=== PATIENT | female | born 1995 | race Caucasian/White ===

== ENCOUNTER → 2018-07-06 21:06 | Observation (INO) ==
[2018-07-06 17:40] LABS: Amphetamine Screen,Urine Negative ng/mL (Cutoff=1000); Barbiturate Screen,Urine Negative ng/mL (Cutoff=200); Benzodiazepines Screen,Urine Negative ng/mL (Cutoff=200); Cannabinoid Screen,Urine Negative ng/mL (Cutoff = 50); Cocaine Screen,Urine Negative ng/mL (Cutoff= 300); Opiate Screen,Urine Negative ng/mL (Cutoff=300); Phencyclidine Screen,Urine Negative ng/mL (Cutoff=25)
[2018-07-06 17:55] LABS: Bilirubin,Urine Negative (Negative); Blood,Urine Negative (Negative); Clarity,Urine Clear (Clear); Color,Urine Yellow (Yellow); Glucose,Urine (UA) Normal (Normal); Ketones,Urine Negative (Negative); Leukocyte Esterase,Urine Moderate (Negative); Nitrite,Urine Negative (Negative); Protein,Urine Negative (Neg-Trace); Specific Gravity,Urine < 1.005 (1.010-1.025); Urobilinogen,Urine Normal (Normal)
[2018-07-06 17:57] LABS: Bacteria,Urine Moderate per hpf (None-Few); Hyaline Casts,Urine None Seen per lpf (None-Few); RBC,Urine 0-3 per hpf (0-3); Squamous Epithelial Cell,Urine Many per lpf (None-Few)
[2018-07-06 19:47] LABS: Candida DNA Not Detected (Not Detect); Gardnerella DNA Not Detected (Not Detect); Trichomonas DNA Not Detected (Not Detect)
--- NOTE | 2018-07-06 20:01 | Discharge Summary ---
Date of Encounter: 07/06/18 Time of Encounter: 20:03 - Discharge Diagnosis (1) 35 weeks gestation of Priority: Primary Status: Acute Comments: Admitted to observation for labor evaluation Urinalysis contaminated, but otherwise unremarkable. No cervical change while in observation. (2) Uterine contractions during Priority: Secondary Status: Acute Comments: Admitted to observation for labor evaluation. Irregular contractions noted on monitor Tylenol given for discomfort No cervical change despite irregular uterine contractions. (3) NST (non-stress test) reactive Priority: Secondary Status: Acute Comments: FHR 125 bpm, moderate variability, +15x15 accels, no decels - Discharge Medications Allergies/Adverse Reactions: Allergy/AdvReac Type Severity Reaction Status Date / Time Amoxicillin Allergy Hives Verified 07/06/18 19:11 Data Procedures and tests throughout hospitalization: Laboratory Tests 07/06/18 07/06/18 07/06/18 17:18 17:18 18:30 Urine Color Yellow Urine Clarity Clear Urine pH 7.0 Ur Specific [place] < 1.005 L Urine Protein Negative Urine Glucose (UA) Normal Urine Ketones Negative Urine Blood Negative Urine Nitrite Negative Urine Bilirubin Negative Urine Urobilinogen Normal Ur Leukocyte Esterase Moderate H Urine Microscopic RBC 0-3 Urine Microscopic WBC 5-15 H Ur Squamous Epith Cells Many H Urine Bacteria Moderate H Hyaline Casts None Seen Ur Culture Indicated? NO. A Urine Opiates Screen Negative Ur Barbiturates Screen Negative Ur Phencyclidine Scrn Negative Ur Amphetamines Screen Negative U Benzodiazepines Scrn Negative Urine Cocaine Screen Negative U Marijuana (THC) Screen Negative Ur Drug Screen Interp See Below Serenity species DNA Not Detected Gardnerella DNA Probe Not Detected Trichomonas DNA Probe Not Detected Labs on day of discharge: Labs from last 24 hours 07/06/18 07/06/18 07/06/18 18:30 17:18 17:18 Urine Color Yellow Urine Clarity Clear Urine pH 7.0 Ur Specific [place] < 1.005 L Urine Protein Negative Urine Glucose (UA) Normal Urine Ketones Negative Urine Blood Negative Urine Nitrite Negative Urine Bilirubin Negative Urine Urobilinogen Normal Ur Leukocyte Esterase Moderate H Urine Microscopic RBC 0-3 Urine Microscopic WBC 5-15 H Ur Squamous Epith Cells Many H Urine Bacteria Moderate H Hyaline Casts None Seen Ur Culture Indicated? NO. A Urine Opiates Screen Negative Ur Barbiturates Screen Negative Ur Phencyclidine Scrn Negative Ur Amphetamines Screen Negative U Benzodiazepines Scrn Negative Urine Cocaine Screen Negative U Marijuana (THC) Screen Negative Ur Drug Screen Interp See Below Serenity species DNA Not Detected Gardnerella DNA Probe Not Detected Trichomonas DNA Probe Not Detected Date of admission: 07/06/18 16:08 Primary care physician: Nel Osorio MD Discharging clinician: Anai Nolan Anticipated date of discharge: 07/06/18 - Patient Status Disposition: Home, Self-Care Condition: Good Functional capacity at discharge: independent ambulation Overall status at discharge: patient is progressing back to baseline - Discharge Instructions Follow Up With: Nel Osorio MD [Primary Care Provider] - - Diet and Activity Activity: resume usual activities as tolerated Diet: regular diet Hospital Course 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 States she has had intercourse in the last 24 hours. She reports positive movement, denies vaginal bleeding, abnormal discharge, and fluid leakage. Vaginal exam on admission 1cm/80%/-3 station with fetus noted to be in breech presentation, verified with bedside ultrasound. Cervix without slip box changer the course of >2 hours. Small amount of white chunky discharge noted on glove with SVE so Vaginosis panel sample collected and returned with negative results. labor precautions given. Patient is to follow up on 07/14 for routine care with Dr. Velez as scheduled. Time Attestation: Total time spent providing and/or coordinating discharge services: Time Spent: Less than 30 minutes Exam - Constitutional General appearance IM: A&O X 3, pleasant, no acute distress - Respiratory Respiratory exam: Present: CTAB - Cardiovascular Cardiovascular exam IM: Present: RRR, +S1, +S2 - GI/Abdominal GI/Abdominal exam IM: normal bowel sounds, soft - Rectal Rectal exam: deferred - Extremities Exam Extremities exam IM: Present: full ROM, normal inspection, pedal edema - Neurological Exam Neurological exam: alert, normal gait, oriented X3 - VTE Reasons for not Prescribing Prophylaxis: Treatment not Indicated - Low risk for VTE
[~2018-07-06 21:06] MED LIST: Acetaminophen 325 MG TABLET PO ONE
== END | disposition home or self-care (01) ==
LOC: 1NENULAB
PROVIDERS: ADMIT Registered Nurse; ATTEND Registered Nurse

== ENCOUNTER 2018-07-10 17:28 | Inpatient (IN) ==
--- NOTE | 2018-07-10 13:24 | OB Labor Progress Note ---
Date of Encounter: 07/10/18 Time of Encounter: 13:22 Labor Progress Note - Subjective Subjective: Patient reports feeling contractions for several days now. - Cervix Cervix: 4-5/908/-1 - Heart Tones Heart Tones: FHR 125 bpm, moderate variability, +15x15 accels, no decels. - [place]: High frequency, low amplitude uterine actiivty noted. - Interventions Interventions: Bedside ultrasound reveals persistent breech presentation. Consult with Dr. Gloria regarding possible . - Plan Physician notified: Yes Physician notified details: Dr. Gloria notified of at 35w6d who presents with back and pelvic pain for multiple days. She had previously been 1 cm on 07/06/18 and presents today at 4- 5 cm, still in breech presentation. Plan: Give dose of steroids now. Have patient take a Hibiclens shower in preparation for possible . Recheck cervix in 1- 1 1/2 hours.
[2018-07-10 14:19] LABS: Bilirubin,Urine Negative (Negative); Blood,Urine Negative (Negative); Clarity,Urine Cloudy (Clear); Color,Urine Yellow (Yellow); Glucose,Urine (UA) Normal (Normal); Ketones,Urine Negative (Negative); Leukocyte Esterase,Urine Large (Negative); Nitrite,Urine Negative (Negative); PH,Urine 6.5 pH Units (5.0-8.0); Protein,Urine Negative (Neg-Trace); Urobilinogen,Urine Normal (Normal)
[2018-07-10 14:22] LABS: Bacteria,Urine Many per hpf (None-Few); Hyaline Casts,Urine None Seen per lpf (None-Few); RBC,Urine 0-3 per hpf (0-3); Squamous Epithelial Cell,Urine Many per lpf (None-Few); WBC,Urine 50-100 per hpf (0-3)
[2018-07-10 14:35] LABS: Amphetamine Screen,Urine Negative ng/mL (Cutoff=1000); Barbiturate Screen,Urine Negative ng/mL (Cutoff=200); Benzodiazepines Screen,Urine Negative ng/mL (Cutoff=200); Cannabinoid Screen,Urine Negative ng/mL (Cutoff = 50); Cocaine Screen,Urine Negative ng/mL (Cutoff= 300); Opiate Screen,Urine Negative ng/mL (Cutoff=300); Phencyclidine Screen,Urine Negative ng/mL (Cutoff=25)
--- NOTE | 2018-07-10 15:00 | OB/GYN History & Physical ---
Date of Encounter: 07/10/18 Time of Encounter: 14:58 Assessment and Plan (1) 35 weeks gestation of Current visit: Yes Status: Acute 23 y/o female at 35 weeks and 6 days gestation Complaint of intermittent contractions and pelvic pain for several days Has made cervical change consultant past several days, dilation of 1 cm on 07/06/18, 3 cm 07/09/18 and now today at 5 cm, 100% effacement and BBOW Bedside U/S shows breech position GBS + Given 1 of 2 doses of betametasone at 13:45 today due to breech position, cervical dilation and contractions Dr. Gloria regional education manager (2) NST (non-stress test) reactive Current visit: Yes Status: Acute FHR 135 Moderate variability +15 x 15, no decels (3) labor in third trimester Current visit: Yes Status: Acute Patient has made cervical change and is flora q 1 minute with a bulging bag and breech presentation. Risks, benefits, and alternatives discussed with the patient and informed consent is obtained. Qualifiers: labor delivery status: with delivery in third trimester Fetus number: single or unspecified fetus Qualified Code(s): O60.14X0 - labor third trimester with delivery third trimester, not applicable or unspecified (4) Breech presentation Current visit: Yes Status: Acute Plan for primary low transverse Qualifiers: Fetus number: single or unspecified fetus Qualified Code(s): O32.1XX0 - Maternal care for breech presentation, not applicable or unspecified History of Present Illness Chief complaint: 35 weeks gestation of HPI: Ms. Downey is a 23 year old female at 35 weeks and 6 days gestation who presents today with intermittent contractions, back pain and pelvic pain for several days duration. KATHERINE 08/08/18. She has had care with Dr. Velez. course has been uncomplicated. She has been seen previously for labor evaluation with cervical dilation of 1 cm on 07/06/18 and 3 cm dilation on 07/09/18. Today she states that she is having intermittent contract ions with tightening sensation, she admits to good movement. She denies vaginal bleeding or leakage of fluid. She denies nausea, vomiting, fever, chills, dizziness, vision changes, chest pain, shortness of breath, dysuria, frequency, RUQ or epigastric pain or calf pain. Blood type O+ GBS positive HBsAG NR HIV NR T pallidum negative Rubella non immune Varicella immune UDS negative Past Med Surg Social Fam HX - Past Medical History Source: patient Medical history: asthma Psychiatric history: no psych history - Past Surgical History Surgical History: no surgical history - Social History Smoking Status: Current some day smoker Packs per day: 0.25 Smokeless Tobacco Status: No Alcohol use: none Drug use: none Current living situation: Home Activity Level: Independent ambulation Recent Out of Country Travel Within the Last 8 Weeks: No Exposure or Possible Exposure to Illness During Travel: No - Family History Mother Living Status: Still Living Hx Family Cardiac Disorders: Yes (hypertension) Hx Family Respiratory Disorders: No Hx Family Cancer: No Hx Family GI Disorders: No Hx Family Endocrine Disorder: No Hx Family Neuromuscular Disorders: No Hx Family Neurologic Disorders: No Hx Family HEENT Disorders: No Hx Family Autoimmune Disorders: No Obstetrical History - Pregnancies : 1 Para: 0 Term: 0 : 0 Ab's: 0 Livin Medications and Allergies Acetaminophen [Non-Aspirin] 325 mg PO Q6HR PRN 07/08/18 [History] Vit #108/Iron/FA [ One Tablet] 1 each PO DAILY 07/08/18 [History] Allergy/AdvReac Type Severity Reaction Status Date / Time Amoxicillin Allergy Hives Verified 07/08/18 23:03 Review of System OB All systems PM: reviewed and no additional remarkable complaints except as stated Exam - Constitutional Constitutional: well developed, well nourished, no acute distress, obese - HEENT HEENT: EOMI, Normocephaly, Mucus Membranes Moist - Neck Neck exam: full ROM, supple, trachea midline - Lungs Respiratory exam: CTAB - Cardiovascular Cardiovascular exam: RRR, +S1, +S2 - Abdomen Abdomen: Present: bowel sounds normal, gravid, non tender - Extremities Extremities exam: normal inspection, pedal edema, radial pulses palpable and symmetrical Deep Tendon Reflex Grade: 2+ Normal - Vagina Vagina: Present: normal moisture - Cervix Dilation: 5 Effacement: 100 Station: -1 (BBOW) - Uterus Uterus exam: Present: normal size, normal contour Results Result Diagrams: 07/10/18 15:00 Abnormal lab results Urine Clarity Cloudy (Clear) A 11/25/18 13:55 Ur Leukocyte Esterase Large (Negative) H 07/10/18 13:55 Urine Microscopic WBC 50-100 per hpf (0-3) H 07/10/18 13:55 Ur Squamous Epith Cells Many per lpf (None-Few) H 07/10/18 13:55 Urine Bacteria Many per hpf (None-Few) H 07/10/18 13:55 Ur Culture Indicated? NO. (NO) A 07/10/18 13:55 All other labs normal. - VTE Reasons for not Prescribing Prophylaxis: Treatment not Indicated - Low risk for VTE - Attending Attestation I examined this patient and my medical decision-making was reviewed with the Resident Physician. I agree with the documented findings, disposition and treatment plan as described above. Katelynn Gloria DO
--- NOTE | 2018-07-10 15:13 | OB Labor Progress Note ---
Date of Encounter: 07/10/18 Time of Encounter: 15:10 Labor Progress Note - Subjective Subjective: Patient has been up to shower with hibiclens. Denies needs at this time. - Vital Signs Vital Signs: WNL - Cervix Cervix: 5/100/-1 with BBOW - Heart Tones Heart Tones: 135 bpm, moderate variability, +15x15 accels, no decels. - [place]: 1-6 minutes - Interventions Interventions: SVE 5cm Initiate IVF, draw CBC - Plan Physician notified: Yes Physician notified details: Dr. Gloria notified of most recent SVE and contraction pattern. Plan: Schedule section at 1700 today due to breech presentation, dilation of 5 cm, and frequent contractions.
[2018-07-10 15:52] LABS: Basophils # 0.1 K/mcL (0.0-0.2); Basophils % 0.3 %; Eosinophils # 0.1 K/mcL (0.0-0.6); Eosinophils % 0.5 %; Hematocrit 37.9 % (35.3-44.9); Hemoglobin 12.7 g/dL (11.5-15.4); Immature Granulocytes % 0.5 % (0-4); Lymphocytes # 1.8 K/mcL (0.6-4.6); Lymphocytes % 10.1 %; Mean Corpuscular HGB Conc 33.5 g/dL (31.6-35.5); Mean Corpuscular Hemoglobin 29.5 pg (28.0-33.3); Mean Corpuscular Volume 87.9 fL (83.0-100.0); Mean Platelet Volume 11.6 fL (9.4-12.4); Monocytes % 5.5 %; Neutrophils # 14.9 K/mcL (1.6-8.9); Platelet Count 315 K/mcL (140-400); Red Blood Count 4.31 M/mcL (3.82-4.97); Red Cell Distribution Width 13.3 % (11.5-14.5); Segmented Neutrophils % 83.1 %
--- NOTE | 2018-07-10 16:40 | Anesthesia Evaluation PreOp ---
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: Denies Any Significant HX Other Medical History: Denies Any Significant HX Anesthesia History: No Prior Anesthetic Complications, Past Anesthesia (no prior anesthetics,) : Yes (35weeks, g1) Alcohol Use: none Drug use: none Medications and Allergies Acetaminophen [Non-Aspirin] 325 mg PO Q6HR PRN 07/08/18 [History] Vit #108/Iron/FA [ One Tablet] 1 each PO DAILY 07/08/18 [History] Allergy/AdvReac Type Severity Reaction Status Date / Time Amoxicillin Allergy Hives Verified 07/08/18 23:03 - Meds/Allergy Pre-op Review Medications Reviewed: Yes Allergies Reviewed: Yes Beta Blockers on Current Med List: No Anesthesia Results - Labs 07/10/18 15:00 Anesthesia Exam O2 Sat Height 1.52 m Weight 98.4 kg Height: 60 Weight: 98 - HEENT Pupil (Motor): Pupils equal Mallampati: II Teeth: Normal Oral Opening: Greater than 3 - CEMENT GRINDING MILL OPERATOR LOC: Oriented CEMENT GRINDING MILL OPERATOR Motor: Normal RUE, Normal LUE, Normal RLE, Normal LLE, Normal Face CEMENT GRINDING MILL OPERATOR Sensory: Normal: RUE, LUE, RLE, LLE, Face - Cardiac Rhythm: Regular Murmur: None JVD: No Carotid Bruit: No - Pulmonary Breath Sounds: bilateral Clear Respiratory Effort: Symmetrical Anesthesia Assess/Plan ASA Score: 2 Level of consciousness: Cooperative Anesthetic Plan: General (plan B), Regional Nerve Block (plan A) Monitoring Plan: Standard Monitors Recovery Plan: PACU
[~2018-07-10 17:28] MED LIST changes: +*HR* FentaNYL (PF) 100 MCG/2 ML VIAL ONE; +*HR* Morphine Sulfate/PF 10 MG/10 ML AMPUL ONE; +*HR* Phenylephrine 10 MG/ML VIAL ONE; -Acetaminophen 325 MG TABLET PO ONE; +Betamethasone Acet/SodPhos 6 MG/ML MDV IM SCH; +CeFAZolin Premix DUPLEX 2,000 MG/50 ML BAG IVPB ONE; +Famotidine 20 MG/2 ML VIAL IVP ONE; +Lidocaine -MPF 1% 5 ML AMPUL ONE; +Metoclopramide 10 MG/2 ML VIAL IVP ONE; +Naloxone 0.4 MG/ML INJ IVP PRN; +Ondansetron 4 MG/2 ML VIAL IVP PRN; +Oxytocin 20 units/ LR 1000 mL 20 UNIT/1,000 ML BAG IVC SCH; +Ringers Solution, Lactated 1,000 ML IVC SCH; +Ringers Solution, Lactated 1,000 ML ONE
[2018-07-10] MEDS ORDERED: Ringers Solution, Lactated 1,000 ML ONE ×2 (17:30→18:30)
[2018-07-10] MEDS ORDERED: Ondansetron 4 MG/2 ML VIAL ONE (17:34)
[2018-07-10] MEDS ORDERED: *HR* Oxytocin 10 UNIT/ML VIAL IM ONE ×2 (17:47→18:30)
[2018-07-10] MEDS ORDERED: *HR* HYDROmorphone (PF) 1 MG/ML SYRINGE IVP PRN (17:50)
[2018-07-10] MEDS ORDERED: Acetaminophen IV 1,000 MG/100 ML INFUS..BTL IVPB ONE (17:50)
[2018-07-10] MEDS ORDERED: *HR* Promethazine 25 MG/ML VIAL IVP PRN (17:50)
--- NOTE | 2018-07-10 18:40 | OB/GYN Procedure Note ---
Section - Date of procedure: 07/10/18 Preop diagnosis: breech, other ( labor at 35 weeks) Post-op diagnosis: same Procedure: section, primary low transverse Surgeon: Katelynn Hill Blood Loss: 500 Was there an marketing assistant present: Yes Business Systems Architect: Val Knox Anesthesiologist: Rosamaria Freedman Circus Performer: Anthony Chang Anesthesia Type: Spinal section complications: none Disposition: PACU Specimens: Placenta - Infant (s) Infant A Infant Delivery Date: 07/10/18 Infant Delivery Time: 17:47 Presentation: breech, daniel breech Route of delivery: breech extraction Gender: Male Viability: Viable Pounds: 5 Ounces: 7 Gram Weight: 2.46 kg at 1 minute: 9 at 5 minutes: 9 Specimens collected: cord blood Placenta: partial extraction - Narrative Narrative: Patient was taken to the operative suite and placed under spinal anesthetic. She was then prepped and draped in normal sterile fashion in the dorsal supine position. Timeout was then performed. Antibiotics were given. SCDs are on and active. Pfannenstiel skin incision is then made and carried through to underlying layer of fascia with the Bovie. The fascia was then incised in the midline and incision extended laterally with the Ott scissors. The fascia was tented up and dissected off the rectus muscles sharply. The rectus muscles were in the midline and the peritoneum was tented up and entered sharply with the Metzenbaum scissors. The peritoneal incision was then extended bluntly. The bladder blade was then inserted and the vesicouterine peritoneum was entered sharply. Bladder flap was created digitally. A low transverse uterine incision was then made. The infant breech was brought to the incision and the was delivered using fundal pressure and breech maneuvers. There was no nuchal cord. Cord was clamped and cut. was handed to waiting nursery staff. Placenta delivered spontaneously complete and intact with a three-vessel cord. The uterus was cleared of all clots and debris using moist laparotomy sponge. The uterine incision was then closed using 0 Vicryl in a running locked fashion. A second layer of the same suture was used to obtain excellent hemostasis. The abdomen was then cleared of all clots and debris using copious irrigation. The fascial incision was then closed using 0 Vicryl in a running fashion. The skin was closed using 4-0 Vicryl in a subcuticular fashion. Sterile Ra dressing was then placed. Mother and infant taken to recovery in stable condition.
[2018-07-10] MEDS ORDERED: Ondansetron 4 MG/2 ML VIAL IVP PRN (21:34)
[2018-07-10] MEDS ORDERED: Acetaminophen 325 MG TABLET PO PRN (21:34)
[2018-07-10] MEDS ORDERED: Metoclopramide 10 MG/2 ML VIAL IVP PRN (21:34)
[2018-07-10] MEDS ORDERED: Oxytocin 20 units/ LR 1000 mL 20 UNIT/1,000 ML BAG IVC SCH ×2 (21:34)
[2018-07-10] MEDS ORDERED: Sennosides 8.6 MG TABLET PO PRN (21:34)
[2018-07-10] MEDS ORDERED: Simethicone 80 MG TAB.CHEW PO PRN (21:34)
[2018-07-10] MEDS ORDERED: *HR* OxyCODONE Immed Rel 5 MG TABLET PO PRN (21:34)
[2018-07-11 07:18] LABS: Basophils # 0.1 K/mcL (0.0-0.2); Basophils % 0.2 %; Eosinophils % 0.1 %; Hematocrit 35.1 % (35.3-44.9); Hemoglobin 11.9 g/dL (11.5-15.4); Immature Granulocytes % 0.7 % (0-4); Lymphocytes # 2.1 K/mcL (0.6-4.6); Lymphocytes % 9.1 %; Mean Corpuscular HGB Conc 33.9 g/dL (31.6-35.5); Mean Corpuscular Hemoglobin 29.5 pg (28.0-33.3); Mean Corpuscular Volume 86.9 fL (83.0-100.0); Mean Platelet Volume 11.2 fL (9.4-12.4); Monocytes # 1.7 K/mcL (0.0-1.3); Monocytes % 7.1 %; Neutrophils # 19.3 K/mcL (1.6-8.9); Platelet Count 305 K/mcL (140-400); Red Blood Count 4.04 M/mcL (3.82-4.97); Red Cell Distribution Width 13.2 % (11.5-14.5); Segmented Neutrophils % 82.8 %
--- NOTE | 2018-07-11 10:28 | OB/GYN Progress Note ---
Date of Encounter: 07/11/18 Time of Encounter: 10:26 - Assessment and Plan (1) Status post primary low transverse section Current Visit: Yes Status: Acute continue routine postop/ care plan to discharge home tomorrow Subjective - Subjective Principal diagnosis: Postop day 1 primary c/s for breech presentation Interval history: Patient presented to labor and delivery in labor with breech presentation. Patient had a primary C/S with Dr. Gloria. Patient denies any pain at this time. Patient is passing flatus and tolerating regular diet. Patient reports: appetite normal, voiding normally, pain well controlled, ambulating normally : doing well, bottle feeding Objective - Vital Signs Latest vital signs: Vital Signs Temp Pulse Resp BP Pulse Ox 07/11/18 07:52 98.3 F 82 16 118/78 07/11/18 07:45 16 07/11/18 03:45 98.3 F 85 16 116/76 98 07/11/18 00:00 98.4 F 93 16 119/74 97 07/10/18 23:00 97.7 F 80 14 125/83 97 07/10/18 22:00 97.5 F L 94 16 128/78 98 07/10/18 21:30 98.0 F 89 16 121/77 97 07/10/18 21:00 97.6 F 87 14 110/64 97 Intake and Output 07/10/18 07/11/18 07/11/18 23:59 07:59 15:59 Output Total 500 / 500 Balance -500 / -500 Output: Urine 500 / 500 Other: # Voids 1 Weight 97.3 kg 95.753 kg Patient Weight 07/11/18 23:59 Weight 95.753 kg - Exam Lungs: bilateral: normal Chest: Normal S1, Normal S2 Extremities: Present: normal Abdomen: Present: normal appearance, soft Incision: Present: normal, dry, dressed (Ra dressing) Uterus: Present: normal, firm Fundal Height: 1 (U/1) - Labs Labs: Laboratory Results - last 24 hr 07/10/18 07/10/18 07/10/18 13:55 13:55 15:00 WBC 17.9 H RBC 4.31 Hgb 12.7 Hct 37.9 MCV 87.9 MCH 29.5 MCHC 33.5 RDW 13.3 Plt Count 315 MPV 11.6 Immature Gran % 0.5 Seg Neutrophils % 83.1 Lymphocytes % 10.1 Monocytes % 5.5 Eosinophils % 0.5 Basophils % 0.3 Neutrophils # 14.9 H Lymphocytes # 1.8 Monocytes # 1.0 Eosinophils # 0.1 Basophils # 0.1 Urine Color Yellow Urine Clarity Cloudy A Urine pH 6.5 Ur Specific [place] 1.010 Urine Protein Negative Urine Glucose (UA) Normal Urine Ketones Negative Urine Blood Negative Urine Nitrite Negative Urine Bilirubin Negative Urine Urobilinogen Normal Ur Leukocyte Esterase Large H Urine Microscopic RBC 0-3 Urine Microscopic WBC 50-100 H Ur Squamous Epith Cells Many H Urine Bacteria Many H Hyaline Casts None Seen Ur Culture Indicated? NO. A Urine Opiates Screen Negative Ur Barbiturates Screen Negative Ur Phencyclidine Scrn Negative Ur Amphetamines Screen Negative U Benzodiazepines Scrn Negative Urine Cocaine Screen Negative U Marijuana (THC) Screen Negative Ur Drug Screen Interp See Below 07/11/18 06:24 WBC 23.3 H RBC 4.04 Hgb 11.9 Hct 35.1 L MCV 86.9 MCH 29.5 MCHC 33.9 RDW 13.2 Plt Count 305 MPV 11.2 Immature Gran % 0.7 Seg Neutrophils % 82.8 Lymphocytes % 9.1 Monocytes % 7.1 Eosinophils % 0.1 Basophils % 0.2 Neutrophils # 19.3 H Lymphocytes # 2.1 Monocytes # 1.7 H Eosinophils # 0.0 Basophils # 0.1 Urine Color Urine Clarity Urine pH Ur Specific [place] Urine Protein Urine Glucose (UA) Urine Ketones Urine Blood Urine Nitrite Urine Bilirubin Urine Urobilinogen Ur Leukocyte Esterase Urine Microscopic RBC Urine Microscopic WBC Ur Squamous Epith Cells Urine Bacteria Hyaline Casts Ur Culture Indicated? Urine Opiates Screen Ur Barbiturates Screen Ur Phencyclidine Scrn Ur Amphetamines Screen U Benzodiazepines Scrn Urine Cocaine Screen U Marijuana (THC) Screen Ur Drug Screen Interp
[2018-07-11] MEDS: Prenatal Vit/FA 1 EACH TABLET PO SCH (10:32)
[2018-07-11] MEDS: Ibuprofen 600 MG TABLET PO PRN ×2 (10:32→19:38)
[2018-07-11] MEDS ORDERED: Azithromycin 250 MG TABLET PO SCH (12:00)
[2018-07-11] MEDS: *HR* OxyCODONE/APAP 5/325 TABLET PO PRN (18:44)
[2018-07-11 20:26] VITALS: BP 129/80
[2018-07-12] MEDS: Ibuprofen 600 MG TABLET PO PRN (02:34)
[2018-07-12] MEDS: *HR* OxyCODONE/APAP 5/325 TABLET PO PRN (02:35)
--- NOTE | 2018-07-12 10:26 | Discharge Summary ---
Date of Encounter: 07/12/18 Time of Encounter: 10:20 - Discharge Diagnosis (1) Status post primary low transverse section Priority: Primary Status: Acute Comments: Pt meeting all post-op milestones. She is requesting discharge home today. Good mood. Pain well controlled. She is ambulating, voiding, tolerating regular diet and passing flatus. - Discharge Medications Prescriptions: Ibuprofen [Motrin] 600 mg PO Q6HR PRN #60 tablet PRN Reason: Cramping OxyCODONE/APAP 5/325 [Percocet 5/325 MG] 1 each PO Q6HR PRN 7 Days #28 tablet PRN Reason: Moderate pain 4-6 Azithromycin [Zithromax] 500 mg PO Q24H #10 tablet Docusate [Colace] 100 mg PO BID #60 capsule Home Medications: Vit #108/Iron/FA [ One Tablet] 1 each PO DAILY 07/08/18 [History] Azithromycin [Zithromax] 500 mg PO Q24H #10 tablet 07/12/18 [Rx] Docusate [Colace] 100 mg PO BID #60 capsule 07/12/18 [Rx] Ibuprofen [Motrin] 600 mg PO Q6HR PRN #60 tablet 07/12/18 [Rx] OxyCODONE/APAP 5/325 [Percocet 5/325 MG] 1 each PO Q6HR PRN 7 Days #28 tablet 07/12/18 [Rx] Simethicone [Gas-X] 80 mg PO TID PRN tab.chew 07/12/18 [Rx] Allergies/Adverse Reactions: Allergy/AdvReac Type Severity Reaction Status Date / Time Amoxicillin Allergy Hives Verified 07/08/18 23:03 Data Procedures and tests throughout hospitalization: Laboratory Tests 07/10/18 07/10/18 07/10/18 13:55 13:55 15:00 WBC 17.9 H RBC 4.31 Hgb 12.7 Hct 37.9 MCV 87.9 MCH 29.5 MCHC 33.5 RDW 13.3 Plt Count 315 MPV 11.6 Immature Gran % 0.5 Seg Neutrophils % 83.1 Lymphocytes % 10.1 Monocytes % 5.5 Eosinophils % 0.5 Basophils % 0.3 Neutrophils # 14.9 H Lymphocytes # 1.8 Monocytes # 1.0 Eosinophils # 0.1 Basophils # 0.1 Urine Color Yellow Urine Clarity Cloudy A Urine pH 6.5 Ur Specific [place] 1.010 Urine Protein Negative Urine Glucose (UA) Normal Urine Ketones Negative Urine Blood Negative Urine Nitrite Negative Urine Bilirubin Negative Urine Urobilinogen Normal Ur Leukocyte Esterase Large H Urine Microscopic RBC 0-3 Urine Microscopic WBC 50-100 H Ur Squamous Epith Cells Many H Urine Bacteria Many H Hyaline Casts None Seen Ur Culture Indicated? NO. A Urine Opiates Screen Negative Ur Barbiturates Screen Negative Ur Phencyclidine Scrn Negative Ur Amphetamines Screen Negative U Benzodiazepines Scrn Negative Urine Cocaine Screen Negative U Marijuana (THC) Screen Negative Ur Drug Screen Interp See Below 07/11/18 06:24 WBC 23.3 H RBC 4.04 Hgb 11.9 Hct 35.1 L MCV 86.9 MCH 29.5 MCHC 33.9 RDW 13.2 Plt Count 305 MPV 11.2 Immature Gran % 0.7 Seg Neutrophils % 82.8 Lymphocytes % 9.1 Monocytes % 7.1 Eosinophils % 0.1 Basophils % 0.2 Neutrophils # 19.3 H Lymphocytes # 2.1 Monocytes # 1.7 H Eosinophils # 0.0 Basophils # 0.1 Urine Color Urine Clarity Urine pH Ur Specific [place] Urine Protein Urine Glucose (UA) Urine Ketones Urine Blood Urine Nitrite Urine Bilirubin Urine Urobilinogen Ur Leukocyte Esterase Urine Microscopic RBC Urine Microscopic WBC Ur Squamous Epith Cells Urine Bacteria Hyaline Casts Ur Culture Indicated? Urine Opiates Screen Ur Barbiturates Screen Ur Phencyclidine Scrn Ur Amphetamines Screen U Benzodiazepines Scrn Urine Cocaine Screen U Marijuana (THC) Screen Ur Drug Screen Interp Date of admission: 07/10/18 17:28 Primary care physician: PCP NONE Consults: 07/10/18 21:34 Consult to [employer] (W&C) [CONS] Routine Reason For Exam: Reason for SW Consult: socioeconomic Discharging clinician: Lindsay Calvo Anticipated date of discharge: 07/12/18 - Patient Status Disposition: Home, Self-Care Condition: Good Functional capacity at discharge: independent ambulation Overall status at discharge: patient is progressing back to baseline - Discharge Instructions Follow Up With: NONE,PCP [Primary Care Provider] - Katelynn Gloria DO [Partnered Physician] - - Diet and Activity Activity: increase activity as tolerated Hospital Course Reason for admission: active labor Delivery: breech extraction, section Episiotomy: none Laceration: none Other procedures: none complications: none Discharge diagnosis: delivery baby: male Hospital course: Date of procedure: 07/10/18 Preop diagnosis: breech, other ( labor at 35 weeks) Post-op diagnosis: same Procedure: section, primary low transverse Surgeon: Katelynn Hill Blood Loss: 500 Was there an cleaner assistant present: Yes Grain Miller Helper: Val Knox Anesthesiologist: Rosamaria Freedman Manager Product Support: Anthony Chang Anesthesia Type: Spinal section complications: none Disposition: PACU Specimens: Placenta - (s) Infant A Infant Delivery Date: 07/10/18 Delivery Time: 17:47 Presentation: breech, daniel breech Route of delivery: breech extraction Gender: Male Viability: Viable Pounds: 5 Ounces: 7 Gram Weight: 2.46 kg at 1 minute: 9 at 5 minutes: 9 Specimens collected: cord blood Placenta: partial extraction Time Attestation: Total time spent providing and/or coordinating discharge services: Time Spent: Less than 30 minutes - VTE Reasons for not Prescribing Prophylaxis: Treatment not Indicated - Low risk for VTE Documentation of Mechanical Device: Intermittent pneumatic compression device Exam - Constitutional Vitals: Temp Pulse Resp BP Pulse Ox 98.1 F 90 16 129/80 99 07/11/18 19:55 07/11/18 19:55 07/11/18 19:55 07/11/18 19:55 07/11/18 19:55 General appearance IM: A&O X 3 - Respiratory Respiratory exam: Present: CTAB - Cardiovascular Cardiovascular exam IM: Present: RRR - GI/Abdominal GI/Abdominal exam IM: soft Incision: dressed (MAGDALENA dressing with scant old drainage) - Uterine Tone: Firm Uterus Position: At Umbilicus - Extremities Exam Extremities exam IM: Present: pedal edema (2+ bilaterally, no erythema or warmth) - Neurological Exam Neurological exam: normal gait, oriented X3 - Psychiatric Additional comments: reports good mood - Other Additional findings: OARRS reviewed, no rx history
[2018-07-12] MEDS: Prenatal Vit/FA 1 EACH TABLET PO SCH (10:53)
== END 2018-07-12 12:10 | disposition home or self-care (01) | DRG 540 ==
LOC: 1NENULAB → 1NENUOBS 21:02
PROVIDERS: ADMIT Registered Nurse; ATTEND Registered Nurse